=== PATIENT | female | born 1975 | race American Indian/Alaskan Native ===

== ENCOUNTER 2020-02-14 12:53 | Emergency (ER) | payer BC ==
[2020-02-14] MEDS ORDERED: ASPIRIN 325 MG TAB PO ONE (13:46)
[2020-02-14 14:25] LABS: Hematocrit 26.4 % (30.3-42.9); Hemoglobin 8.7 gm/dl (10.1-14.3); Mean Corpuscular HGB Conc 33 % (30-34); Platelet Count 170 K/mm3 (140-440)
[2020-02-14 14:41] LABS: Mean Corpuscular Volume 59 fl (79-97); Red Cell Distribution Width 24.9 % (13.2-15.2)
--- NOTE | 2020-02-14 14:45 | XRay Report ---
CHEST 1 VIEW 02/14/2020 2:05 PM INDICATION / CLINICAL INFORMATION: Chest Pain. COMPARISON: None available. FINDINGS: SUPPORT DEVICES: None. HEART / MEDIASTINUM: No significant abnormality. LUNGS / PLEURA: No significant pulmonary or pleural abnormality. No pneumothorax. ADDITIONAL FINDINGS: No significant additional findings. IMPRESSION: 1. No acute abnormality of the chest. Signer Name: Ab Spicer MD Signed: 02/14/2020 2:41 PM Workstation Name: [id number]
[2020-02-14 14:58] LABS: BUN/Creatinine Ratio 12; Blood Urea Nitrogen 12 mg/dL (7-17); Calcium 9.3 mg/dL (8.4-10.2); Hemolysis Index 0
[2020-02-14 17:15] LABS: Band Neutrophils # (Manual) 0.3 K/mm3; Basophils % (Manual) 0 % (0.0-1.8); Eosinophils % (Manual) 0 % (0.0-4.3); Total Cells Counted 100
[2020-02-14 17:20] LABS: Anisocytosis 2+
[2020-02-14 17:21] LABS: Hypochromasia 2+; Target Cells Few
[2020-02-14 17:24] LABS: Large Platelets Rare; Platelet Estimate Consistent w Auto
[2020-02-14 18:18] VITALS: BP 157/74
--- NOTE | 2020-02-14 19:56 | Emergency Department Report ---
ED General Adult HPI - General Chief complaint: Chest Pain Stated complaint: SOB (+)COVID Time Seen by Provider: 02/14/20 19:50 Source: patient Mode of arrival: Ambulatory Limitations: No Limitations - History of Present Illness Initial comments: Patient is 45 years old female with no significant past medical history. Patient presented to the ER complaining of chest pain and mild shortness of breath for the last 2 weeks. Patient stated that she was confirmed positive for COVID-19 twice last one was 7 days ago. Patient denied any fever or chills. Patient reported loss of taste and smell. Patient denied any abdominal pain, nausea or vomiting. Severity scale (0 -10): 6 - Related Data Allergies Allergy/AdvReac Type Severity Reaction Status Date / Time No Known Allergies Allergy Unverified 02/14/20 13:36 ED Review of Systems ROS: Stated complaint: SOB (+)COVID Other details as noted in HPI Comment: All other systems reviewed and negative Constitutional: denies: chills, fever Respiratory: shortness of breath. denies: cough, orthopnea, SOB with exertion, SOB at rest, wheezing Cardiovascular: denies: chest pain Gastrointestinal: denies: abdominal pain, nausea, vomiting, diarrhea, constipation, hematemesis, melena, hematochezia Musculoskeletal: denies: back pain Neurological: denies: headache, weakness, numbness, paresthesias, confusion, abnormal gait ED Past Medical Hx - Past Medical History Additional medical history: SICKLE CELL TRAIT ED Physical Exam - General Limitations: No Limitations General appearance: alert, in no apparent distress - Head Head exam: Present: atraumatic, normocephalic, normal inspection - Eye Eye exam: Present: normal appearance - ENT ENT exam: Present: normal exam, normal orophraynx, mucous membranes moist - Neck Neck exam: Present: normal inspection, full ROM. Absent: tenderness, meningismus, lymphadenopathy, thyromegaly - Respiratory Respiratory exam: Present: normal lung sounds bilaterally - Cardiovascular Cardiovascular Exam: Present: regular rate, normal rhythm, normal heart sounds - GI/Abdominal GI/Abdominal exam: Present: soft, normal bowel sounds. Absent: distended, tenderness, guarding, rebound, rigid, organomegaly, mass, bruit, pulsatile mass, hernia - Extremities Exam Extremities exam: Present: normal inspection, full ROM, normal capillary refill. Absent: pedal edema, calf tenderness - Back Exam Back exam: Present: normal inspection, full ROM. Absent: CVA tenderness (R), CVA tenderness (L) - Neurological Exam Neurological exam: Present: alert, oriented X3, CN II-XII intact, normal gait, reflexes normal. Absent: motor sensory deficit - Psychiatric Psychiatric exam: Present: normal mood - Skin Skin exam: Present: warm, intact, normal color ED Course Vital Signs 02/14/20 02/14/20 13:46 17:55 Temperature 99.5 F 98 F Pulse Rate 88 78 Respiratory 18 16 Rate Blood Pressure 134/76 157/74 [Right] O2 Sat by Pulse 100 96 Oximetry ED Medical Decision Making - Lab Data Result diagrams: 02/14/20 14:07 02/14/20 14:07 - EKG Data -: EKG Interpreted by Al EKG shows normal: sinus rhythm Rate: normal - EKG Data Interpretation: no acute changes - Radiology Data Radiology results: report reviewed - Medical Decision Making Patient is 45 years old female with no significant past medical history. Patient presented to the ER complaining of chest pain and mild shortness of breath for the last 2 weeks. Patient stated that she was confirmed positive for COVID-19 twice last one was 7 days ago. Patient denied any fever or chills. Patient reported loss of taste and smell. Patient denied any abdominal pain, nausea or vomiting. Patient remained stable in the emergency room. With an oxygen saturation of 100% on room air. Labs reviewed and is unremarkable except for slightly low hemoglobin of 8.7 with a low MCV indicating chronic iron deficiency anemia. Chest x-ray unremarkable. Patient advised to continue her self quarantine and to follow-up with her primary care physician in the next 2 to 3 days and to return to the ER if she develop any new symptoms. Critical care attestation.: If time is entered above; I have spent that time in minutes in the direct care of this critically ill patient, excluding procedure time. ED Disposition Clinical Impression: Shortness of breath, COVID-19 Disposition: DC-01 TO HOME OR SELFCARE Is pt being admited?: No Condition: Stable Instructions: COVID-19 Referrals: ZACARIAS MOLINA MD [Primary Care Provider] - 3-5 Days
== END 2020-02-14 20:08 | disposition home or self-care (01) ==
LOC: ED 12:53
DX: U07.1 COVID-19 (principal); R06.02 Shortness of breath
CPT/HCPCS: 36415; 71045; 80048; 84484; 85007; 85025; 93005

== ENCOUNTER 2020-07-15 02:09 | Emergency (ER) | payer BC, MEDICAID ==
[2020-07-15] MEDS ORDERED: ACETAMINOPHEN 500 MG TAB PO ONE (02:51)
--- NOTE | 2020-07-15 03:08 | Emergency Department Report ---
ED Female HPI - General Chief complaint: Vaginal Bleeding Stated complaint: CRAMPING Source: patient Mode of arrival: Ambulatory Limitations: No Limitations - History of Present Illness Initial comments: Patient is a A0 45 yo AA female with no past medical history and who is approximately 13 weeks gestation and who presents to the ED with c/o acute onset persistent severe suprapubic pain with vaginal bleeding for the last 8 hours. Patient states that the pain is constant and persistent since onset and that the bleeding has been heavier. Patient states that she has not taken any medications prior to arrival. Patient denies dyspnea, nausea, vomiting, chest pain, shortness of breath, fever and chills, cough, sore throat, dysuria, vaginal discharge and low back pain. MD Complaint: vaginal bleeding, pelvic pain, other (13 weeks gestation) -: Sudden, hour(s) (8) Location: suprapubic, other (vaginal ) Radiation: non-radiating Severity: moderate Severity scale (0 -10): 6 Quality: sharp, aching Consistency: constant Improves with: none Worsens with: none Are you Now?: Yes (12 weeks gestation) Associated Symptoms: denies other symptoms, vaginal bleeding, abdominal pain (suprapubic). denies: vaginal discharge, nausea/vomiting, fever/chills, hea daches, rash - Related Data Sexually active: Yes : 1 Para: 0 A: 0 Previous Rx's Medication Instructions Recorded Last Taken Type Ferrous Sulfate [Ferrous Sulfate 324 mg PO DAILY #30 tablet. 02/14/20 Unknown Rx 324 MG] Acetaminophen [Tylenol] 500 mg PO Q6HR PRN #30 tablet 07/15/20 Unknown Rx Allergies Allergy/AdvReac Type Severity Reaction Status Date / Time No Known Allergies Allergy Unverified 02/14/20 13:36 ED Review of Systems ROS: Stated complaint: CRAMPING Other details as noted in HPI Constitutional: denies: chills, fever Eyes: denies: eye pain, eye discharge, vision change ENT: denies: ear pain, throat pain Respiratory: denies: cough, shortness of breath, wheezing Cardiovascular: denies: chest pain, palpitations Endocrine: no symptoms reported Gastrointestinal: abdominal pain (suprapubic). denies: nausea, vomiting, diarrhea, constipation, hematemesis, hematochezia Genitourinary: abnormal menses (vaginal bleeding). denies: urgency, dysuria, discharge Musculoskeletal: denies: back pain, joint swelling, arthralgia Skin: denies: rash, lesions Neurological: denies: headache, weakness, paresthesias Psychiatric: denies: anxiety, depression Hematological/Lymphatic: denies: easy bleeding, easy bruising ED Past Medical Hx - Past Medical History Previous Medical History?: Yes Additional medical history: SICKLE CELL TRAIT - Surgical History Past Surgical History?: No - Social History Smoking Status: Never Smoker Substance Use Type: None - Medications Home Medications: Home Medications Medication Instructions Recorded Confirmed Last Taken Type Ferrous Sulfate [Ferrous Sulfate 324 mg PO DAILY #30 tablet. 02/14/20 Unknown Rx 324 MG] Acetaminophen [Tylenol] 500 mg PO Q6HR PRN #30 tablet 07/15/20 Unknown Rx ED Physical Exam - General Limitations: No Limitations General appearance: alert, in no apparent distress - Head Head exam: Present: atraumatic, normocephalic, normal inspection - Eye Eye exam: Present: normal appearance, PERRL, EOMI Pupils: Present: normal accommodation - ENT ENT exam: Present: normal exam, normal orophraynx, mucous membranes moist, TM's normal bilaterally, normal external ear exam - Neck Neck exam: Present: normal inspection, full ROM. Absent: tenderness - Respiratory Respiratory exam: Present: normal lung sounds bilaterally. Absent: respiratory distress, wheezes, rales, rhonchi, stridor, chest wall tenderness, accessory muscle use, prolonged expiratory - Cardiovascular Cardiovascular Exam: Present: regular rate, normal rhythm, normal heart sounds. Absent: systolic murmur, diastolic murmur, rubs, gallop - GI/Abdominal GI/Abdominal exam: Present: soft, tenderness (Suprapubic ), normal bowel sounds. Absent: guarding, rebound, hyperactive bowel sounds, hypoactive bowel sounds, organomegaly - Bi-manual exam: Present: other (Pelvic exam deferred at this time) - Extremities Exam Extremities exam: Present: normal inspection, full ROM, normal capillary refill - Back Exam Back exam: Present: normal inspection, full ROM. Absent: tenderness, CVA tenderness (R), CVA tenderness (L), muscle spasm, paraspinal tenderness, vertebral tenderness - Neurological Exam Neurological exam: Present: alert, oriented X3, CN II-XII intact, normal gait, reflexes normal - Psychiatric Psychiatric exam: Present: normal affect, normal mood - Skin Skin exam: Present: warm, dry, intact, normal color. Absent: rash ED Course Vital Signs 07/15/20 02:34 Temperature 99.1 F Pulse Rate 99 H Respiratory 18 Rate Blood Pressure 144/78 O2 Sat by Pulse 100 Oximetry ED Medical Decision Making - Lab Data Result diagrams: 07/15/20 02:50 07/15/20 03:58 - Radiology Data Radiology results: report reviewed, image reviewed Findings [facility] [address] [place] [address] Ultrasound Report Signed Patient: STEPHANIE DICKEY MR#: [id number] : 1975 Acct:[id number] Age/Sex: 45 / F ADM Date: 07/15/20 Loc: ED Attending Dr: Ordering Physician: JOSTIN MCELROY III, MD Date of Service: 07/15/20 Procedure(s): US OB <= 14 wk fetus add gest Accession Number(s): [id number] cc: JOSTIN MCELROY III, MD TRANSABDOMINAL OB PELVIC ULTRASOUND INDICATION / CLINICAL INFORMATION: Vaginal bleeding. COMPARISON: None available. FINDINGS: The uterus measures approximately 16.1 x 12.1 x 13.1 cm. There is a single intrauterine with an estimated gestational age of 13 weeks 6 days by crown-rump length. The heart rate is 167 bpm. I see no evidence of implantation hemorrhage. There are a couple of uterine fibroids, the largest of which measures approximately 6.8 cm in the posterior uterine body. The ovaries are not seen. There is no evidence of adnexal mass or free fluid. IMPRESSION: 1. Single viable 13 week 6 day intrauterine . 2. Two uterine fibroids. Signer Name: Theron Falcon MD Signed: 07/15/2020 3:34 AM Workstation Name: [id number] Transcribed By: RT Dictated By: Theron Falcon MD Electronically Authenticated By: Theron Falcon MD Signed Date/Time: 07/15/20333 DD/ 0 TD/TT: - Medical Decision Making This is a A0 45 yo AA female with no past medical history and who is approximately 13 weeks gestation and who presents to the ED with c/o acute onset persistent severe suprapubic pain with vaginal bleeding for the last 8 hours. Patient states that the pain is constant and persistent since onset and that the bleeding has been heavier. Patient states that she has not taken any medications prior to arrival. Lab test results were reviewed and showed hCG quant of 48 331, rest of the lab test results are nonactionable. Patient was treated for pain with Tylenol in the ED. Transvaginal ultrasound showed a single viable 13 week 6 day intrauterine with a heart rate of 167 bpm and two uterine fibroids. Patient ABO/Rhesus is positive. 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 Patient was advised to maintain a complete pelvic rest while taking the medications. Patient was advised return to the ED immediately if symptoms get worse. - Differential Diagnosis Threatened miscarriage; UTI; Ovarian cyst; Fibroids; Subchor. bleed Critical care attestation.: If time is entered above; I have spent that time in minutes in the direct care of this critically ill patient, excluding procedure time. ED Disposition Clinical Impression: Threatened miscarriage, Vaginal bleeding in Abdominal pain in Qualifiers: Trimester: first trimester Qualified Code(s): O26.891 - Other specified related conditions, first trimester Disposition: DC-01 TO HOME OR SELFCARE Is pt being admited?: No Does the pt Need Aspirin: No Condition: Stable Instructions: Threatened Miscarriage, [id number], Abdominal Pain During , Vaginal Bleeding During , Second Trimester, [id number] Additional Instructions: The transvaginal ultrasound showed a single IUP of approximately 13 weeks 6 days with a heart rate of 167 bpm. All other lab test results are nonactionable. Therefore maintain a complete pelvic rest, with your physical or strenuous heavy lifting and sexual activity. 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 Return to the ED immediately if symptoms get worse. Prescriptions: Acetaminophen [Tylenol] 500 mg PO Q6HR PRN #30 tablet PRN Reason: Pain , Severe (7-10) Referrals: ZACARIAS MOLINA MD [Primary Care Provider] - 3-5 Days Time of Disposition: 06:04 Print Language: SERBIAN
[2020-07-15 03:13] LABS: Hematocrit 25.2 % (30.3-42.9); Hemoglobin 9.1 gm/dl (10.1-14.3); Mean Corpuscular HGB Conc 36 % (30-34); Platelet Count 130 K/mm3 (140-440); Red Blood Count 3.65 M/mm3 (3.65-5.03)
--- NOTE | 2020-07-15 03:39 | Ultrasound Report ---
TRANSABDOMINAL OB PELVIC ULTRASOUND INDICATION / CLINICAL INFORMATION: Vaginal bleeding. COMPARISON: None available. FINDINGS: The uterus measures approximately 16.1 x 12.1 x 13.1 cm. There is a single intrauterine wit h an estimated gestational age of 13 weeks 6 days by crown-rump length. The heart rate is 167 b pm. I see no evidence of implantation hemorrhage. There are a couple of uterine fibroids, the largest of which measures approximately 6.8 cm in the posterior uterine body. The ovaries are not seen. Ther e is no evidence of adnexal mass or free fluid. IMPRESSION: 1. Single viable 13 week 6 day intrauterine . 2. Two uterine fibroids. Signer Name: Theron Falcon MD Signed: 07/15/2020 3:34 AM Workstation Name: [id number]
[2020-07-15 03:46] LABS: Bacteria,Urine 1+ /HPF (Negative); Bilirubin,Urine NEG (Negative); Blood,Urine MOD (Negative); Color,Urine Yellow (Yellow); Protein,Urine <15 mg/dL mg/dL (Negative); Urobilinogen,Urine < 2.0 mg/dL (<2.0)
[2020-07-15 03:48] LABS: Mean Corpuscular Volume 69 fl (79-97); Red Cell Distribution Width 25.4 % (13.2-15.2)
[2020-07-15 04:33] LABS: Anisocytosis 1+; Hypochromasia 1+; Total Cells Counted 100
[2020-07-15 04:34] LABS: Platelet Estimate Consistent w Auto; Target Cells Few
[2020-07-15 04:36] LABS: Alanine Aminotransferase 14 units/L (7-56); BUN/Creatinine Ratio 13; Blood Urea Nitrogen 10 mg/dL (7-17); Calcium 9.5 mg/dL (8.4-10.2); Hemolysis Index 0
[2020-07-15 06:21] VITALS: BP 132/74
== END 2020-07-15 06:21 | disposition home or self-care (01) ==
LOC: ED 02:09
DX: O20.0 Threatened abortion (principal); O20.9 Hemorrhage in early pregnancy, unspecified; O26.891 Other specified pregnancy related conditions, first trimester; R10.30 Lower abdominal pain, unspecified; Z79.899 Other long term (current) drug therapy; Z3A.13 13 weeks gestation of pregnancy
CPT/HCPCS: 36415; 76801; 76802; 80053; 81001; 84702; 85007; 85025; 86900; 86901